=== PATIENT | female | born 1985 | race African-American/Black ===

== ENCOUNTER 2017-12-08 22:52 | Emergency (ER) | payer OTHER ==
--- NOTE | 2017-12-08 23:29 | C.PDOC ---
History Of Present Illness 32 yo female w/o significant PMHx come in for evaluation of left earache gradually developed for past few hours. Pt admits, cold sx for past week associated with nasal congestion, runny nose, sore throat. Otherwise, pt denies high fever, chills, headache, dizziness, vertigo, ear discharges, tinnitus, drooling, dyspnea, SOB, wheezing, abd. pain, V/D, back pain, UTI sx. Ambulate to Ed for evaluation, appears in pain. Time Seen by Provider: 12/08/17 23:02 Chief Complaint (Nursing): Flu-like Symptoms History Per: Patient Onset/Duration Of Symptoms: Gradual Past Medical History Reviewed: Historical Data, Nursing Documentation, Vital Signs Vital Signs: Last Vital Signs Temp 98.1 F 12/08/17 23:19 Pulse 102 H 12/08/17 23:19 Resp 20 12/08/17 23:19 BP 143/96 H 12/08/17 23:19 Pulse Ox 100 12/08/17 23:39 - Medical History PMH: No Chronic Diseases Surgical History: No Surg Hx Family History: States: No Known Family Hx - Social History Hx Tobacco Use: No Hx Alcohol Use: No Hx Substance Use: No - Immunization History Hx Tetanus Toxoid Vaccination: No Hx Influenza Vaccination: No Hx Pneumococcal Vaccination: No Review Of Systems Except As Marked, All Systems Reviewed And Found Negative. Constitutional: Positive for: Fever, Chills, Malaise ENT: Positive for: Ear Pain, Nose Discharge, Nose Congestion, Throat Pain, Throat Swelling. Negative for: Ear Discharge Cardiovascular: Negative for: Chest Pain Respiratory: Negative for: Cough, Shortness of Breath, Wheezing Gastrointestinal: Negative for: Nausea, Vomiting, Abdominal Pain, Diarrhea Genitourinary: Negative for: Dysuria Musculoskeletal: Negative for: Neck Pain Skin: Negative for: Rash Neurological: Negative for: Weakness, Numbness, Altered Mental Status, Headache , Dizziness Physical Exam - Physical Exam Appears: Well, No Acute Distress Skin: Normal Color, Warm, Dry, No Rash Eye(s): bilateral: PERRL Ear(s): Left: TM Erythema, Right: Normal Nose: No Flaring, Discharge (B/L nasal congestion with scant clear rhinorrhea) Oral Mucosa: Moist, No Drooling Tongue: Normal Appearing Lips: Normal Appearing Throat: Erythema (mod B/L), No Exudate, No Drooling Neck: Trachea Midline, Supple, Other ((-) meningeal sign) Cardiovascular: Rhythm Regular Respiratory: No Decreased Breath Sounds, No Accessory Muscle Use, No Stridor, No Wheezing Gastrointestinal/Abdominal: Soft, No Tenderness, No Distention, No Guarding Back: No CVA Tenderness Extremity: Normal ROM, No Deformity, No Swelling Neurological/Psych: Oriented x3, Normal Speech ED Course And Treatment O2 Sat by Pulse Oximetry: 100 Pulse Ox Interpretation: Normal Progress Note: On re-evaluation, pt is awake, comfortable, not in any apparent distress. Afebrile, hemodynamicaly stable. Non-toxic, tolerate PO well in ED. PulsEOx 100% RA. ENT: exam c/w left otitis media. Neck: Supple, (-) meningeal sign. Lungs: CTA B/L, BS equal B/L. Abd: benign, (-) guaridng, (-) rebound. Neurologicaly intact. Pt advised. ref. to f/u with PMD, ENT in 2-3 days for re-eval. return to ED if any worsening or new changes. Disposition Counseled Patient/Family Regarding: Diagnosis, Need For Followup, Rx Given - Disposition Referrals: Non [facility] Provider, [Non-Staff] - [facility] [Outside] Disposition: HOME/ ROUTINE Disposition Time: 23:37 Condition: STABLE Additional Instructions: ENCOURAGE FLUIDS TAKE MEDICATION PRESCRIBED FOLLOW UP WITH PMD, ENT IN 2-3 DAYS FOR RE-EVALUATION. RETURN TO ED IF ANY WORSENING OR NEW CHANGES. Prescriptions: Amoxicillin/Clavulanate [Augmentin 875 MG-125 MG] 1 tab PO BID #14 tab Prednisone [Deltasone] 40 mg PO DAILY #6 tablet traMADol [Ultram] 50 mg PO TID #7 tab Instructions: Otitis Media (ED) Forms: [email or web address] (Salvadorean) - Clinical Impression Clinical Impression: Otitis media
[2017-12-09] VITALS: BP 143/96; PULSE 102; RESP 20; TEMP 98.1; O2SAT 100
== END 2017-12-09 00:17 | disposition home or self-care (01) ==
LOC: C.ER 22:52
DX: H66.92 Otitis media, unspecified, left ear (principal)